=== PATIENT | female | born 1950 | race Caucasian/White ===

== ENCOUNTER 2017-02-08 10:49 | Observation (INO) | payer MEDICARE ==
[~2017-02-08] VITALS: Ht 167.6 cm; Wt 107.0 kg
[2017-02-08] VITALS (9 sets, daily range): BP systolic 152–179; BP diastolic 62–79; PULSE 66–74; RESP 16–20; TEMP 96.5–98.2; O2SAT 88–99
[~2017-02-08 10:49] MED LIST: AMLO5TAB22 PO; BUPR-86 PO; DICY10CA13 PO; ESTR1TAB PO; GABA300C3 PO; LORA1TAB PO; OXYB5TAB PO; PAXI40TA PO; PRAV20 PO; PROT40TA PO; ZOFR4TAB3 SL
[2017-02-08] MEDS ORDERED: SODIUM CHLOR 0.9% 1000 ML INJ 1,000 ML IV SCH (11:35)
--- NOTE | 2017-02-08 11:38 | PD ---
HPI Chief Complaint: GI Complaint Time Seen by Provider: 11:28 Travel History International Travel<30 days: No Contact w/Intl Traveler<30days: No Traveled to known affect area: No History of Present Illness HPI The patient 66 years old. She complains of generalized abdominal pain. She underwent a colonoscopy 5 days prior for routine follow-up due to colonic polyps. A pedunculated polyp was observed in a specimen was a polypectomy was performed with a cold snare. There is evidence of a prior colonic like surgical anastomosis 18 cm from the point of entry. Retroflex views revealed internal grade 2 hemorrhoids. The patient reports that yesterday she had diarrhea throughout the entire course of the day at least 20 episodes. She reports that overnight she had multiple episodes of bright red blood per rectum. PFSH Past Medical History Arthritis: No Blood Disorders: No Anxiety: No Depression: Yes Cancer: No Cardiovascular Problems: No Diabetes: Yes (DIET CONTROLLED) Patient Takes Glucophage: Yes Diminished Hearing: No Gastrointestinal Disorders: Yes (DIVERTICULITIS) GERD: Yes Glaucoma: No Genitourinary: Yes (PROLAPSE BLADDER) Hepatitis: No Hiatal Hernia: Yes (REPAIRED) Hypertension: Yes Immune Disorder: No Implanted Vascular Access Dvce: No Medical other: Yes (GERD; ARTHRITIS) Musculoskeletal: No Neurologic: Yes (NEUROPATHY MICHELL FEET; RESTLESS LEG SYNDROME) Psychiatric: No Reproductive: No Respiratory: Yes (SLEEP APNEA) Sleep Apnea: Yes Thyroid Disease: Yes (HX ) Tetanus Vaccination: < 5 Years Influenza Vaccination: Yes PNEUMOCCOCAL Vaccine (Year): 2 : 0 Past Surgical History Abdominal Surgery: Yes (HIATAL HERNIA, COLECTOMY) AICD: No Arteriovenous Shunt: No Body Medical Devices: PLATE NECK ; RIGHT BREAST MARKER Cholecystectomy: Yes Ear Surgery: No Eye Surgery: No Genitourinary Surgery: Yes (ANTERIOR REPAIR X 2; POSTERIOR REPAIR X 1; ) Hysterectomy: Yes (AT AGE 24) Insulin Pump: No Joint Replacement: No Neurologic Surgery: Yes (ANTERIOR CERVICAL FUSION) Oral Surgery: Yes (SINSUS SX) Pacemaker: No Other Surgery: Yes (CYST IN L NIPPLE CHOLECYSTECTOMY, SINUS, SURGERY FOR FECAL INCONTINENCE) Social History Alcohol Use: No Tobacco Use: No Substance Use: No Allergies-Medications (Allergen,Severity, Reaction): Coded Allergies: Ceftin (Verified Allergy, Severe, RASH, 10/13/13) Codeine (Verified Allergy, Severe, KNOCKS HER OUT, 10/13/13) Erythromycins (Verified Allergy, Severe, RASH, 10/13/13) PT STATES INTERMEDIATE REACTION Lortab (Verified Allergy, Severe, KNOCKS HER OUT-CANT WORK, 10/13/13) PT STATES MILD REACTION- MAKES HER DROWSY MRI PRECAUTION (Verified Allergy, Severe, 10/13/13) INTERMEDIATE REACTION Penicillin (Verified Allergy, Severe, RASH, 10/13/13) Tetracyclines (Verified Allergy, Severe, RASH, 10/13/13) INTERMEDIATE REACTION Tylenol (Verified Allergy, Severe, RASH PER PATIENT, 10/13/13) Levaquin (Verified Allergy, Mild, ITCHING, 10/13/13) *MDRO Multi-Drug Resistant Organism (Verified Allergy, 10/13/13) MRSA Uncoded Allergies: MRI DYE (Allergy, Severe, RASH, 05/29/10) TYLOX (Allergy, Intermediate, MUSCLE SPASM, 05/29/10) Reported Meds & Prescriptions Reported Meds & Active Scripts Active Reported Dicyclomine (Dicyclomine HCl) 10 Mg Cap 10 Mg PO TIDAC Micardis (Telmisartan) 80 Mg Tab 80 Mg PO DAILY Pravastatin Sodium 20 Mg Tab 20 Mg PO DAILY Paxil (Paroxetine HCl) 40 Mg Tab 40 Mg PO DAILY Protonix (Pantoprazole Sodium) 40 Mg Tabdr 40 Mg PO DAILY Estradiol 1 Mg Tab 1 Mg PO DAILY Bupropion Hcl Sr (Bupropion HCl) 150 Mg Tab 150 Mg PO DAILY Gabapentin 300 Mg Cap 300 Mg PO TID Review of Systems Except as stated in HPI: all other systems reviewed are Neg General / Constitutional: No: Fever Gastrointestinal: Positive: Nausea, Diarrhea Physical Exam Narrative GENERAL: 66-year-old female mild distress well-nourished well-developed SKIN: Focused skin assessment warm/dry. HEAD: Atraumatic. Normocephalic. EYES: Pupils equal and round. No scleral icterus. No injection or drainage. ENT: No nasal bleeding or discharge. Mucous membranes pink and moist. NECK: Trachea midline. No JVD. CARDIOVASCULAR: Regular rate and rhythm. No murmur appreciated. RESPIRATORY: No accessory muscle use. Clear to auscultation. Breath sounds equal bilaterally. GASTROINTESTINAL: Soft. Generalized tenderness. MUSCULOSKELETAL: No obvious deformities. No clubbing. No cyanosis. No edema. NEUROLOGICAL: Awake and alert. No obvious cranial nerve deficits. Motor grossly within normal limits. Normal speech. PSYCHIATRIC: Appropriate mood and affect; insight and judgment normal. Data Data Last Documented VS Vital Signs Date Time Temp Pulse Resp B/P Pulse Ox O2 Delivery O2 Flow Rate FiO2 02/08/17 12:30 66 16 152/62 95 02/08/17 12:29 Room Air 02/08/17 10:57 98.2 Vital signs reviewed Orders Complete Blood Count With Diff (02/08/17 11:35) Comprehensive Metabolic Panel (02/08/17 11:35) Lipase (02/08/17 11:35) Lactic Acid (02/08/17 11:35) Ct Abd/Pel W Iv Contrast(Rout) (02/08/17 11:35) Iv Access Insert/Monitor (02/08/17 11:35) Ecg Monitoring (02/08/17 11:35) Oximetry (02/08/17 11:35) Ondansetron Inj (Zofran Inj) (02/08/17 11:45) Sodium Chlor 0.9% 1000 Ml Inj (Ns 1000 M (02/08/17 11:35) Sodium Chloride 0.9% Flush (Ns Flush) (02/08/17 11:45) Hydromorphone Pf Inj (Dilaudid Pf Inj) (02/08/17 11:45) Iohexol 350 Inj (Omnipaque 350 Inj) (02/08/17 12:45) Hydromorphone Pf Inj (Dilaudid Pf Inj) (02/08/17 13:30) C Diff Toxin Pcr (02/08/17 13:44) Type And Screen (02/08/17 13:45) Admit Order (Ed Use Only) (02/08/17 13:54) Red Blood Cells (Rbc) (02/08/17 11:30) Labs Laboratory Tests Test 02/08/17 02/08/17 11:30 11:45 White Blood Count 6.6 TH/MM3 Red Blood Count 5.16 MIL/MM3 Hemoglobin 11.8 GM/DL Hematocrit 36.9 % Mean Corpuscular Volume 71.4 FL Mean Corpuscular Hemoglobin 22.9 PG Mean Corpuscular Hemoglobin 32.0 % Concent Red Cell Distribution Width 15.6 % Platelet Count 316 TH/MM3 Mean Platelet Volume 8.6 FL Neutrophils (%) (Auto) 60.8 % Lymphocytes (%) (Auto) 28.8 % Monocytes (%) (Auto) 7.8 % Eosinophils (%) (Auto) 1.8 % Basophils (%) (Auto) 0.8 % Neutrophils # (Auto) 4.0 TH/MM3 Lymphocytes # (Auto) 1.9 TH/MM3 Monocytes # (Auto) 0.5 TH/MM3 Eosinophils # (Auto) 0.1 TH/MM3 Basophils # (Auto) 0.1 TH/MM3 CBC Comment AUTO DIFF Differential Comment AUTO DIFF CONFIRMED Red Cell Morphology Comment NORMAL Sodium Level 139 MEQ/L Potassium Level 3.9 MEQ/L Chloride Level 102 MEQ/L Carbon Dioxide Level 25.9 MEQ/L Anion Gap 11 MEQ/L Blood Urea Nitrogen 9 MG/DL Creatinine 0.65 MG/DL Estimat Glomerular Filtration 91 ML/MIN Rate Random Glucose 92 MG/DL Calcium Level 8.9 MG/DL Total Bilirubin 0.7 MG/DL Aspartate Amino Transf 24 U/L (AST/SGOT) Alanine Aminotransferase 28 U/L (ALT/SGPT) Alkaline Phosphatase 117 U/L Total Protein 7.7 GM/DL Albumin 3.6 GM/DL Lipase 131 U/L Blood Type O POSITIVE Antibody Screen NEGATIVE Crossmatch Leukocyte-Reduced Red Blood Cells Blood Bank Comment Lactic Acid Level 1.3 mmol/L MDM Medical Decision Making Medical Screen Exam Complete: Yes Emergency Medical Condition: Yes Differential Diagnosis Constipation, Gastritis, Acute Cholecystitis, Biliary Colic, Pancreatitis, BROWN , Hepatitis, Bowel Obstruction, Cystitis, Mesenteric Ischemia, AAA, Appendicitis , Renal Stone/Hydronephrosis, GERD, perforated viscous Narrative Course CBC & BMP Diagram 02/08/17 11:30 LA 1.3 LFTs normal Lipase normal Last 24 hours Impressions Abdomen/Pelvis CT 02/08/17 1135 Signed Impressions: Service Date/Time: Wednesday, February 08, 2017 12:29 - CONCLUSION: 1. Multiple fat-containing abdominal wall hernias are identified. 2. Hepatic steatosis with stable hypervascular liver lesion. 3. Left ovarian cystic mass measuring 6.9 cm. 4. Atherosclerosis. Silverio Brice MD PT with persistent pain after IV Dilaudid. Second dose given along with second dose Zofran. Upon reassessment pt began vomiting. d/w Dr Claros for GI. d/w Dr Pedroza for [facility]. Diagnosis Primary Impression: Abdominal pain Qualified Code: R10.9 - Abdominal pain, unspecified location Additional Impression: Rectal bleed Admitting Information Admitting Physician Requests: Osbaldo Rueda MD Feb 08, 2017 11:37
[2017-02-08] MEDS ORDERED: ONDANSETRON HCL 4 MG/2 ML VIAL IVP ONE (11:45)
[2017-02-08] MEDS ORDERED: SODIUM CHLORIDE 0.9% FLUSH 10 ML FLUSH IV FLUSH PRN ×2 (11:45→16:15)
[2017-02-08] MEDS ORDERED: HYDROmorphone HCL PF 1 MG/ML VIAL IVS ONE (11:45)
[2017-02-08 11:55] LABS: BASOPHIL # 0.1 TH/MM3 (0-0.2); BASOPHIL % 0.8 % (0.0-2.0); EOSINOPHIL # 0.1 TH/MM3 (0-0.4); EOSINOPHIL % 1.8 % (0.0-4.0); HEMATOCRIT 36.9 % (35.0-46.0); LYMPH % 28.8 % (9.0-44.0); LYMPHOCYTE # 1.9 TH/MM3 (1.0-4.8); MEAN CELL VOLUME 71.4 FL (80.0-100.0); MEAN CORPUSCULAR HEMOGLOBIN 22.9 PG (27.0-34.0); MONO % 7.8 % (0.0-8.0); NEUT % 60.8 % (16.0-70.0); PLATELET COUNT 316 TH/MM3 (150-450); RED BLOOD COUNT 5.16 MIL/MM3 (4.00-5.30); RED CELL DISTRIBUTION WIDTH 15.6 % (11.6-17.2); WHITE BLOOD COUNT 6.6 TH/MM3 (4.0-11.0)
[2017-02-08 11:57] LABS: HEMO FLAGS AUTO DIFF
[2017-02-08 12:02] LABS: CHLORIDE 102 MEQ/L (98-107); POTASSIUM 3.9 MEQ/L (3.5-5.1); SODIUM (NA) 139 MEQ/L (136-145)
[2017-02-08 12:08] LABS: ANION GAP 11 MEQ/L (5-15); BICARBONATE 25.9 MEQ/L (21.0-32.0); BLOOD UREA NITROGEN 9 MG/DL (7-18)
[2017-02-08 12:10] LABS: ALT (GPT) 28 U/L (10-53); AST (GOT) 24 U/L (15-37); GLOMERULAR FILTRATION RATE 91 ML/MIN (>89)
[2017-02-08 12:12] LABS: TOTAL BILIRUBIN ADULT 0.7 MG/DL (0.2-1.0)
[2017-02-08 12:13] LABS: ALKALINE PHOSPHATASE 117 U/L (45-117)
[2017-02-08 12:29] LABS: SCAN/DIFF AUTO DIFF CONFIRMED
[2017-02-08] MEDS ORDERED: IOHEXOL 350 MG/ML 10 ML VIAL (for RAD DIAG) IV ONE (12:45)
--- NOTE | 2017-02-08 12:54 | RADRPT ---
EXAM DATE/TIME: 02/08/2017 12:29 [place] COMPARISON: CT ABDOMEN & PELVIS W CONTRAST, July 23, 2015, 19:08. INDICATIONS : Lower abdominal pain with hematochezia for two days. Recent colonoscopy. IV CONTRAST: 95 cc Omnipaque 350 (iohexol) IV ORAL CONTRAST: No oral contrast ingested. RADIATION DOSE: 22.29 CTDIvol (mGy) MEDICAL HISTORY : Diverticulitis. Gastroesophageal reflux disease. Hypertension.Prolapsed bladder. SURGICAL HISTORY : Cholecystectomy. Colectomy. Hiatal hernia repair. ENCOUNTER: Initial ACUITY: 2 days PAIN SCALE: 0/10 LOCATION: lower quadrant TECHNIQUE: Volumetric scanning of the abdomen and pelvis was performed. Using automated exposure control and ad justment of the mA and/or kV according to patient size, radiation dose was kept as low as reasonably achievable to obtain optimal diagnostic quality images. DICOM format image data is available electro nically for review and comparison. FINDINGS: There is hepatic steatosis. There is a focal hypervascular lesion at the liver dome again seen on axi al image 10. The patient is status post cholecystectomy. Kidneys, spleen, pancreas, adrenal glands ar e unremarkable. Surgical clips are noted at the esophagogastric junction. There is a superolateral um bilical fat-containing ventral hernia with a 1.9 cm transverse abdominal wall defect, and hernia sac measuring 9 point centimeters in transverse dimension. An additional fat-containing supraumbilical ve ntral hernia is noted just inferior to this measuring 7.1 cm in transverse dimension. A right paramed pina fat-containing ventral hernia measuring 2.6 cm in transverse dimension on image 59 is noted as we ll as a small fat-containing ventral hernia in the left paramedian region measuring 3.2 centimeters a nd a left paramedian 4.2 cm centimeter ventral hernia containing fat. Urinary bladder is unremarkable . Anastomotic staple line of the sigmoid colon. No evidence for diverticulitis although a diverticulu m is present in the sigmoid colon. The patient is status post cholecystectomy and hysterectomy. A lef t ovarian cyst measuring 6.9 x 4.6 cm in AP and transverse dimension is noted. Atherosclerotic calcif ications of the aorta and iliac vessels are identified. Lung bases are clear. Osseous structures are intact. There are surgical clips at the anterior abdominal wall on the left. CONCLUSION: 1. Multiple fat-containing abdominal wall hernias are identified. 2. Hepatic steatosis with stable hypervascular liver lesion. 3. Left ovarian cystic mass measuring 6.9 cm. 4. Atherosclerosis. Silverio Brice MD on February 08, 2017 at 12:46 Board Certified Radiologist. This report was verified electronically.
[2017-02-08] MEDS ORDERED: HYDROmorphone HCL PF 1 MG/ML VIAL IV PUSH ONE (13:30)
[2017-02-08] MEDS ORDERED: diphenhydrAMINE HCL 50 MG/ML VIAL IVP ONE (14:45)
[2017-02-08] MEDS: SODIUM CHLOR 0.9% 1000 ML INJ 1,000 ML IV SCH (16:11)
[2017-02-08] MEDS ORDERED: LACTULOSE SYRUP 20 GM/30 ML CUP PO PRN (16:15)
[2017-02-08] MEDS ORDERED: ACETAMINOPHEN 325 MG TAB PO PRN (16:15)
[2017-02-08] MEDS ORDERED: SENNOSIDES 8.6 MG TAB PO PRN (16:15)
[2017-02-08] MEDS ORDERED: TEMAZEPAM 15 MG CAP PO PRN (16:15)
[2017-02-08] MEDS ORDERED: diphenhydrAMINE HCL 50 MG/ML VIAL IV PUSH ONE (16:15)
[2017-02-08] MEDS ORDERED: ONDANSETRON HCL 4 MG/2 ML VIAL IVP PRN (16:15)
[2017-02-08] MEDS ORDERED: MAGNESIUM HYDROXIDE SUSP 30 ML CUP PO PRN (16:15)
[2017-02-08] MEDS ORDERED: NALOXONE HCL 0.4 MG/ML AMP IV PRN (16:15)
[2017-02-08] MEDS ORDERED: BISACODYL 10 MG SUPP RECTAL PRN (16:15)
[2017-02-08] MEDS ORDERED: TELM1TAB56 PO (16:21)
[2017-02-08] MEDS ORDERED: DICY10CA12 PO (16:23)
[2017-02-08 17:01] LABS: BASOPHIL # 0.1 TH/MM3 (0-0.2); BASOPHIL % 0.9 % (0.0-2.0); EOSINOPHIL # 0.1 TH/MM3 (0-0.4); EOSINOPHIL % 1.9 % (0.0-4.0); HEMATOCRIT 34.5 % (35.0-46.0); LYMPH % 31.2 % (9.0-44.0); LYMPHOCYTE # 2.2 TH/MM3 (1.0-4.8); MEAN CELL VOLUME 71.7 FL (80.0-100.0); MEAN CORPUSCULAR HEMOGLOBIN 22.3 PG (27.0-34.0); MEAN CORPUSCULAR HGB CONC 31.1 % (32.0-36.0); MONO % 8.8 % (0.0-8.0); NEUT % 57.2 % (16.0-70.0); PLATELET COUNT 286 TH/MM3 (150-450); RED BLOOD COUNT 4.82 MIL/MM3 (4.00-5.30); RED CELL DISTRIBUTION WIDTH 15.7 % (11.6-17.2)
[2017-02-08 17:08] LABS: HEMO FLAGS AUTO DIFF
[2017-02-08] MEDS: GABAPENTIN 300 MG CAP PO SCH (17:26)
[2017-02-08 17:42] LABS: SCAN/DIFF AUTO DIFF CONFIRMED
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
[2017-02-08] MEDS: DOCUSATE SODIUM 50 MG/SENNA 8.6 MG TAB PO SCH (21:00)
[2017-02-08] MEDS: SODIUM CHLORIDE 0.9% FLUSH 10 ML FLUSH IV FLUSH SCH (21:00)
[2017-02-08] MEDS ORDERED: hydrOXYzine HCL 25 MG TAB PO PRN (21:15)
[2017-02-08] MEDS ORDERED: MORPHINE SULFATE 8 MG/ML INJ IV PUSH PRN (21:15)
[2017-02-08] MEDS: LOSARTAN 50 MG TAB PO SCH (21:49)
[2017-02-09 00:25] VITALS: BP 149/87; PULSE 70; RESP 20; TEMP 97; O2SAT 96
[2017-02-09] MEDS: SODIUM CHLOR 0.9% 1000 ML INJ 1,000 ML IV SCH (05:05)
[2017-02-09 06:45] LABS: AUTOMATED NEUTROPHIL # 4.6 TH/MM3 (1.8-7.7); EOSINOPHIL # 0.1 TH/MM3 (0-0.4); EOSINOPHIL % 0.9 % (0.0-4.0); HEMATOCRIT 36.5 % (35.0-46.0); LYMPHOCYTE # 1.1 TH/MM3 (1.0-4.8); MEAN CELL VOLUME 72.6 FL (80.0-100.0); MEAN CORPUSCULAR HEMOGLOBIN 22.9 PG (27.0-34.0); MEAN CORPUSCULAR HGB CONC 31.5 % (32.0-36.0); MONO % 6.5 % (0.0-8.0); NEUT % 74.6 % (16.0-70.0); PLATELET COUNT 260 TH/MM3 (150-450); RED BLOOD COUNT 5.03 MIL/MM3 (4.00-5.30); RED CELL DISTRIBUTION WIDTH 15.8 % (11.6-17.2); WHITE BLOOD COUNT 6.2 TH/MM3 (4.0-11.0)
[2017-02-09 06:47] LABS: HEMO FLAGS AUTO DIFF
[2017-02-09 06:51] LABS: CHLORIDE 103 MEQ/L (98-107); POTASSIUM 3.9 MEQ/L (3.5-5.1); SODIUM (NA) 139 MEQ/L (136-145)
[2017-02-09 06:55] VITALS: BP 149/87; PULSE 70; RESP 18; TEMP 97; O2SAT 96
[2017-02-09 07:00] LABS: BLOOD, URINE TRACE (NEG); GLUCOSE,URINE NEG (NEG); KETONE, URINE NEG (NEG); NITRITE,URINE NEG (NEG)
[2017-02-09 07:00] LABS: ANION GAP 7 MEQ/L (5-15); BICARBONATE 28.7 MEQ/L (21.0-32.0); BLOOD UREA NITROGEN 4 MG/DL (7-18)
[2017-02-09 07:02] LABS: ALT (GPT) 33 U/L (10-53)
[2017-02-09 07:03] LABS: AST (GOT) 27 U/L (15-37); GLOMERULAR FILTRATION RATE 127 ML/MIN (>89)
[2017-02-09 07:04] LABS: TOTAL BILIRUBIN ADULT 0.5 MG/DL (0.2-1.0)
[2017-02-09 07:04] LABS: METHOD OF COLLECTION CLEAN CATCH
[2017-02-09 07:06] LABS: ALKALINE PHOSPHATASE 145 U/L (45-117)
[2017-02-09 07:06] LABS: URINE COLOR YELLOW (YELLW/STRAW)
[2017-02-09 07:07] LABS: RBC, URINE 0-3 /hpf (0-3)
[2017-02-09 07:08] LABS: COMMENT (UR) CULT NOT INDICATED; CULTURE IF INDICATED CULT NOT INDICATED; SQUAMOUS EPITHELIAL CELL URINE 0-5 /hpf (0-5)
[2017-02-09 07:27] LABS: SCAN/DIFF AUTO DIFF CONFIRMED
[2017-02-09] MEDS ORDERED: PROPOFOL 200 MG/20 ML AMP IV ONE (07:46)
[2017-02-09 08:00] VITALS: BP 191/91; PULSE 62; RESP 18; TEMP 96.1; O2SAT 93; O2SAT 95
[2017-02-09] MEDS ORDERED: PARoxetine HCL 20 MG TAB PO SCH (09:00)
[2017-02-09] MEDS ORDERED: ESTRADIOL 1 MG TAB PO SCH (09:00)
[2017-02-09] MEDS: DOCUSATE SODIUM 50 MG/SENNA 8.6 MG TAB PO SCH (09:00)
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
[2017-02-09] MEDS: GABAPENTIN 300 MG CAP PO SCH ×3 (10:07→17:52)
[2017-02-09] MEDS: SODIUM CHLORIDE 0.9% FLUSH 10 ML FLUSH IV FLUSH SCH (10:07)
[2017-02-09] MEDS: LOSARTAN 50 MG TAB PO SCH (10:07)
[2017-02-09] MEDS ORDERED: ASPIRIN 325 MG/CAFFEINE 40 MG/BUTALBITAL 50 MG CAP PO PRN ×2 (10:30)
[2017-02-09] MEDS ORDERED: LOSARTAN 50 MG TAB PO ONE (10:30)
--- NOTE | 2017-02-09 11:09 | HHI.PR ---
Subjective Remarks Back from flex sig, still some lower abdominal pain but not as bad. Had morphine last pm for her headaches. (chronic). No diarrhea since admission. Objective Vitals Vital Signs Date Time Temp Pulse Resp B/P Pulse Ox O2 Delivery O2 Flow Rate FiO2 02/09/17 08:15 59 16 172/84 97 02/09/17 08:00 97.6 60 16 163/89 95 02/09/17 08:00 93 Nasal Cannula 2.00 02/09/17 08:00 96.1 62 18 191/91 95 02/09/17 06:55 97.0 70 18 149/87 96 02/09/17 04:58 02/09/17 00:25 97.0 70 20 149/87 96 02/08/17 20:39 96.5 68 18 157/75 97 02/08/17 20:00 97 Nasal Cannula 2.00 02/08/17 17:51 96 Nasal Cannula 2.00 02/08/17 15:30 97.1 71 20 179/63 99 02/08/17 14:55 18 02/08/17 14:49 74 20 154/72 02/08/17 14:00 88 Nasal Cannula 2 02/08/17 12:30 66 16 152/62 95 02/08/17 12:29 66 95 Room Air 02/08/17 10:57 98.2 72 18 171/79 97 02/08/17 02/08/17 02/09/17 15:00 23:00 07:00 Intake Total 1000 ml 887 ml Output Total 250 ml Balance 1000 ml 637 ml IV Total 1000 ml 887 ml Output Urine Total 250 ml # Bowel Movements 1 Result Diagram: 02/09/17 0525 02/09/17 0525 Imaging Last Impressions Abdomen/Pelvis CT 02/08/17 1135 Signed Impressions: Service Date/Time: Wednesday, February 08, 2017 12:29 - CONCLUSION: 1. Multiple fat-containing abdominal wall hernias are identified. 2. Hepatic steatosis with stable hypervascular liver lesion. 3. Left ovarian cystic mass measuring 6.9 cm. 4. Atherosclerosis. Silverio Brice MD Objective Remarks Lying in bed, lungs cta heart rrr abdomen diminished bowel sounds, lower abdominal tenderness no rebound no c/c/ce Urinary Catheter: No Vascular Central Line Catheter: No A/P Problem List: (1) Rectal bleed Status: Resolved Plan: her h/h has been stable, flex/sig showed no active bleeding, may have been due to hemmorhoids, Dr Claros did further biopsies for her diarrhea (2) Abdominal pain Status: Chronic Plan: chronic, multifactorial she seems to be closer to her baseline pain (3) Hypertension Status: Chronic Plan: on telemisartan as outpatient , given losartan here , meds given after procedure , monitor (4) Neck pain Status: Chronic Plan: causing some headache, scheduled for epidural by pain management on thursday Assessment and Plan If she tolerates food and remains stable will discharge later today . She already has an ashley with Dr Claros on thu. Problem Qualifiers (1) Abdominal pain: Qualified Code: R10.9 - Abdominal pain, unspecified location Saskia Pedroza MD Feb 09, 2017 11:09
[2017-02-09 12:00] VITALS: BP 137/72; PULSE 70; RESP 18; TEMP 96.6; O2SAT 100
--- NOTE | 2017-02-09 14:12 | MR ---
cc: TABITHA LIMA M.D. DATE: 02/09/2017 DATE OF : [address] Temple REASON FOR PROCEDURE Diarrhea, bleeding post procedure, history of polypectomy a few days ago. CONSENT After the risks, benefits, alternatives, indications and limitations were explained to the patient she signed the informed consent. She was informed about the risk of bleeding, perforation, oversedation, allergic reaction to the medication, missed lesion or failed procedure. PROCEDURE The patient was placed in the left lateral decubitus and after the patient was fully sedated by Anesthesia a rectal examination was performed which was suggestive of increased anal tone and external hemorrhoids. The scope was then gently inserted in the rectum and advanced to the cecum which was identified by the ileocecal valve and appendiceal orifice. The scope was then slowly withdrawn and the mucosa was fully examined including color, texture, anatomy and motility. In the rectum retroflexion was performed then the scope was withdrawn and procedure terminated. She tolerated the procedure well with no immediate complications. FINDINGS Surgical changes in the sigmoid colon. The rest of the examination was normal. Random biopsy from descending was done to rule out microscopic colitis. RECOMMENDATIONS Advance diet. If stable may discharge home and follow-up in the office. If continues to have abdominal pain, consider CTA to rule out mesenteric ischemia. Follow-up with PALS NURSE. Also suspect scar tissue. I would like to thank Dr. Temple for referring her to our office for consultation. The findings were discussed with the patient. Also, follow-up stool studies for C. difficile. Tabitha Lima MD BSB/BT /8:08 AM /2:10 PM
--- NOTE | 2017-02-09 14:37 | EKG ---
Date Performed: 02/09/2017 Time Performed: 05:30:51 PTAGE: 66 years EKG: Sinus rhythm WITH FIRST DEGREE AV BLOCK NONSPECIFIC T-WAVE ABNORMALITY Since previous tracing, no significant darlene nge noted ABNORMAL ECG PREVIOUS TRACING : 12/21/2014 13.54 DOCTOR: Rahul Martinez Interpretating Date/Time 02/09/2017 14:36:15
[2017-02-09 16:00] VITALS: BP 146/77; PULSE 76; RESP 18; TEMP 97.4; O2SAT 96
== END 2017-02-09 19:38 | disposition home or self-care (01) ==
LOC: PHED 10:49 → PHEDA 13:56 → UNDOADMOB 13:56 → PH3A 15:02 → PHEDA 15:02 → UNDODISOB 02-09 19:38
PROVIDERS: ADMIT Family Medicine; ATTEND Family Medicine
DX: K50.911 Crohn's disease, unspecified, with rectal bleeding (principal); K58.9 Irritable bowel syndrome, unspecified; R19.7 Diarrhea, unspecified; I44.0 Atrioventricular block, first degree; R94.31 Abnormal electrocardiogram [ECG] [EKG]; R51 Headache; K76.9 Liver disease, unspecified; K64.1 Second degree hemorrhoids; K43.9 Ventral hernia without obstruction or gangrene; I70.0 Atherosclerosis of aorta; K76.0 Fatty (change of) liver, not elsewhere classified; K66.0 Peritoneal adhesions (postprocedural) (postinfection); M54.2 Cervicalgia; R21 Rash and other nonspecific skin eruption; K63.89 Other specified diseases of intestine; R32 Unspecified urinary incontinence; G89.29 Other chronic pain; R10.9 Unspecified abdominal pain; I10 Essential (primary) hypertension; E78.5 Hyperlipidemia, unspecified; E11.9 Type 2 diabetes mellitus without complications; G62.9 Polyneuropathy, unspecified; K21.0 Gastro-esophageal reflux disease with esophagitis; N83.202 Unspecified ovarian cyst, left side; G47.30 Sleep apnea, unspecified; F32.9 Major depressive disorder, single episode, unspecified; Z98.1 Arthrodesis status; Z79.899 Other long term (current) drug therapy; Z86.010 Personal history of colon polyps
CPT/HCPCS: 74177; 80053; 81001; 83605; 83690; 85025; 86850; 86900; 86901; 86920; 86922; 88305; 93005; 96361; 96374; 96375; 96376; 99285; G0378; J1170; J1200; J2270; J2405; J7030; Q9967